=== PATIENT | female | born 1975 | race Caucasian/White ===

== ENCOUNTER → 2020-03-07 06:59 | Outpatient (REF) | payer OTHER, SELFPAY ==
--- NOTE | 2020-03-07 07:13 | ECG_ITS ---
Test Reason : Z01.818 Blood Pressure : / mmHG Vent. Rate : 071 BPM Atrial Rate : 071 BPM P-R Int : 152 ms QRS Dur : 080 ms QT Int : 376 ms P-R-T Axes : 063 064 056 degrees QTc Int : 408 ms Normal sinus rhythm Normal ECG No previous ECGs available Referred By: Linda Mehta Electronically Signed By:JACQUES THOMPSON MD
== END ==
LOC: HO.CARD 06:59
PROVIDERS: PCP Plastic Surgery; Visit Provider Plastic Surgery
DX: Z01.818 Encounter for other preprocedural examination (principal)
CPT/HCPCS: 93005

== ENCOUNTER 2020-04-01 07:58 | Outpatient (REF) | payer OTHER, SELFPAY ==
[2020-04-01 09:10] LABS: Hematocrit 41.2 % (37-47); Hemoglobin 13.4 g/dl (12.0-16.0); Mean Corpuscular HGB Conc 32.5 g/dl (31.0-35.0); Mean Corpuscular Hemoglobin 30.9 pg (27.0-33.0); Mean Corpuscular Volume 94.9 fL (80-98); Mean Platelet Volume 9.6 fL (9.4-12.3); Platelet Count 259 X10*3/uL (160-400); Red Blood Count 4.34 X10*6/uL (4.20-5.50); Red Cell Distribution Width 11.8 % (11.0-16.0); White Blood Count 5.4 X10*3/uL (4.8-10.8)
[2020-04-01 09:11] LABS: Estimated Average Glucose 82 mg/dL; Hemoglobin A1c % 4.5 %
[2020-04-01 09:27] LABS: Prothrombin Time 11.9 SEC (10.8-13.0)
[2020-04-01 09:29] LABS: Alanine Aminotransferase 9 U/L (0-31); Albumin Level 4.3 g/dL (3.5-5.0); Alkaline Phosphatase 61 U/L (39-117); Anion Gap 13 (12-20); Aspartate Amino Transferase 13 U/L (5-31); Bilirubin Total 1.6 mg/dL (0.0-1.0); Blood Urea Nitrogen 11 mg/dL (9-16); Calcium 9.1 mg/dL (8.4-10.2); Carbon Dioxide 24 mmol/L (22-29); Chloride 105 mmol/L (96-108); Estimated Glomerular Filt Rate > 60; Glucose Random 68 mg/dL (60-115); Potassium 4.2 mmol/l (3.3-5.1); Sodium 138 mmol/L (135-145); Total Protein 6.9 g/dL (6.5-8.0)
[2020-04-01 09:51] LABS: Thyroid Stimulating Hormone 0.49 uIU/mL (0.32-4.0)
[2020-04-03 08:04] LABS: HIV AB/AG Nonreactive (Nonreactive); ~HepC Num1 0.05 S/CO (0.00-0.79); ~Hepatitis C Antibody Nonreactive (Nonreactive)
== END 2020-04-01 07:59 | disposition home or self-care (01) ==
LOC: HO.LAB 07:58
PROVIDERS: PCP Internal Medicine; Visit Provider Plastic Surgery
DX: Z01.818 Encounter for other preprocedural examination (principal)
CPT/HCPCS: 36415; 80053; 83036; 84443; 85027; 85610; 85730; 86803; 87389

== ENCOUNTER 2020-04-03 08:12 | Outpatient (REF) | payer OTHER, SELFPAY ==
[2020-04-03 08:57] LABS: Glucose Urine UA NEG (NEG); Leukocyte Esterase Urine NEG (NEG); Nitrite Urine NEG (NEG); PH 5.5 (5.0-8.0); Specific Gravity - Urine 1.025 (1.005-1.025); Urine Blood TRACE (NEG); Urine Ketones NEG (NEG); Urine Protein NEG (NEG-TRACE)
[2020-04-03 08:58] LABS: Appearance Urine CLEAR; Color Urine YELLOW
[2020-04-03 09:13] LABS: Mucus Urine TRACE /LPF; RBC Urine 0-2 /HPF (0); Squamous Epithelial Cell Urine 3+ /LPF; WBC Urine 0 /HPF (0-4)
== END 2020-04-03 08:13 | disposition home or self-care (01) ==
LOC: HO.LNP 08:12
PROVIDERS: Visit Provider Plastic Surgery
DX: Z01.818 Encounter for other preprocedural examination (principal)
CPT/HCPCS: 81001

== ENCOUNTER 2021-11-03 07:14 | Outpatient (REF) | payer OTHER, SELFPAY ==
--- NOTE | ~2021-11-03 | XR_ITS ---
EXAMINATION: XR CHEST CLINICAL INFORMATION: Preop COMPARISON: None TECHNIQUE: 2 views of the chest were obtained. FINDINGS: The cardiac and mediastinal contours are normal. The lungs are clear. There is no pleural effusion or pneumothorax. There are surgical clips in the right axilla. Bony structures are unremarkable. XR/XR chest 2V IMPRESSION: No evidence for acute disease in the chest.
== END 2021-11-03 07:15 | disposition home or self-care (01) ==
LOC: HO.XRAY 07:14
PROVIDERS: PCP Internal Medicine; Visit Provider Plastic Surgery
DX: Z01.818 Encounter for other preprocedural examination (principal)
CPT/HCPCS: 71046

== ENCOUNTER → 2021-11-05 07:03 | Outpatient (REF) | payer OTHER, SELFPAY ==
--- NOTE | 2021-11-05 07:22 | ECG_ITS ---
Test Reason : PREOP Blood Pressure : / mmHG Vent. Rate : 066 BPM Atrial Rate : 066 BPM P-R Int : 152 ms QRS Dur : 074 ms QT Int : 366 ms P-R-T Axes : 057 055 054 degrees QTc Int : 383 ms Normal sinus rhythm with sinus arrhythmia Normal ECG When compared with ECG of 07-MAR-2020 08:23, No significant change was found Referred By: iLnda Mehta Electronically Signed By:MARLA TRACY MD
== END ==
LOC: HO.CARD 07:03
PROVIDERS: PCP Internal Medicine; Visit Provider Plastic Surgery
DX: Z01.818 Encounter for other preprocedural examination (principal)
CPT/HCPCS: 93005